=== PATIENT | male | born 1970 | race African-American/Black ===

== ENCOUNTER 2023-03-20 19:31 | Observation (INO) | payer OTHER, SELFPAY ==
--- NOTE | ~2023-03-20 | US_ITS ---
EXAMINATION: US venous doppler LE RT DATE: 03/20/2023 22:27 INDICATION: Right lower limb swelling TECHNIQUE: Victoria scale images without and with compression and Doppler images of the right lower extre mity veins were obtained. COMPARISON: None FINDINGS: The right common femoral vein, profunda femoral vein, femoral vein, popliteal vein, peronea l trunk, posterior tibial veins, and greater saphenous vein are occluded. IMPRESSION: 1. Deep venous thrombosis of all visualized right lower extremity veins. These findings were discussed with Dr. Brooks Lang in the Emergency Department at 1057 ho urs on 03/20/2023. Reviewed, dictated and finalized at location F. IMPRESSION: 1. Deep venous thrombosis of all visualized right lower extremity veins. These findings were discussed with Dr. Brooks Lang in the Emergency Department at 1057 hours on 03/20/2023.
[2023-03-20 19:55] VITALS: BP 136/82; PULSE 88; RESP 20; TEMP 36.8; O2SAT 99
[2023-03-20 22:57] VITALS: BP 143/92; PULSE 89; RESP 20; O2SAT 100
[2023-03-20 23:03] VITALS: BP 144/89; PULSE 78; RESP 22; O2SAT 98
[2023-03-20 23:16] VITALS: BP 137/85; PULSE 76; RESP 23; O2SAT 99
[2023-03-20 23:16] LABS: Basophils Percent Auto 0.5 % (0.2-1.2); Eosinophils Absolute Auto 0.2 K/mm3 (0-0.3); Eosinophils Percent Auto 2.6 % (0-4.4); Hematocrit 39.8 % (42.0-52.0); Immature Granulocyte Absolute 0.03 K/mm3 (0.00-0.031); Immature Granulocyte Percent A 0.5 % (0-0.5); Lymphocytes Absolute Auto 1.21 K/mm3 (0.9-3.2); Lymphocytes Percent Auto 20.7 % (18.3-44.2); Mean Corpuscular HGB Conc 32.7 g/dl (32-36); Mean Corpuscular Hemoglobin 31.3 pg (26-34); Mean Corpuscular Volume 95.9 fl (80-100); Mean Platelet Volume 10.1 fl (7.4-10.4); Monocytes Absolute Auto 0.5 K/mm3 (0.1-0.6); Monocytes Percent Auto 8.2 % (2.6-8.5); Neutrophils Percent Auto 67.5 % (45.5-73.1); Platelet Count Result 171 k/mm3 (150-375); Red Blood Count 4.15 M/mm3 (4.6-6.20); Red Cell Distribution Width 12.9 % (11.5-14.5); White Blood Count 5.9 K/mm3 (4.5-10.0)
[2023-03-20 23:28] LABS: Alanine Aminotransferase 18 U/L (6-50); Albumin Level 4.2 g/dL (3.5-5.1); Alkaline Phosphatase 96 U/L (38-126); Anion Gap 6 mmol/L (8-16); Aspartate Amino Transferase 27 U/L (17-59); Blood Urea Nitrogen 19 mg/dL (9-20); Calcium 9.1 mg/dL (8.4-10.2); Carbon Dioxide 27 mmol/L (22-30); Chloride 104 mmol/L (98-107); Estimated CRCL calculation 99 ml/min; Estimated Glomerular Filt Rate > 60; Glucose 95 mg/dL (65-110); Potassium 3.9 mmol/L (3.4-5.0); Sodium 137 mmol/L (137-145)
[2023-03-20 23:31] VITALS: BP 144/96; PULSE 69; RESP 20; O2SAT 100
[2023-03-20 23:39] LABS: INR 1.1; Prothrombin Time 14.9 Seconds (11.1-14.7)
[2023-03-20 23:40] LABS: Partial Thromboplastin Time 37.4 SECONDS (22.3-36.8)
[2023-03-20 23:46] VITALS: BP 140/92; PULSE 80; RESP 19; O2SAT 97
[2023-03-21] VITALS (115 sets, daily range): BP systolic 100–183; BP diastolic 60–103; PULSE 67–121; RESP 12–26; TEMP 36.8; O2SAT 92–100
[2023-03-21] MEDS: HEPARIN SODIUM 5,000 UNITS/ML VIAL 7500 UNITS IV PUSH ×2 (01:53→15:41)
[2023-03-21] MEDS: HEPARIN SOD/D5W 100 UNITS/ML 25,000 UNITS/250 ML BAG 15 UNITS IV CONT (01:54)
--- NOTE | 2023-03-21 02:01 | PC.NURSE ---
Angelina from [facility] called for triage information on pt. This RN provided information. [facility] will call every morning and night to update on bed status.
[2023-03-21] MEDS: MORPHINE SULFATE (*CRX) 4 MG/ML INJ IV PUSH (02:14)
--- NOTE | 2023-03-21 02:14 | ED.GENADULT ---
HPI - General Adult General Chief complaint: Extremity Problem,Nontraumatic Stated complaint: pain and swelling in right leg, hx of dvt Time Seen by Provider: 03/20/23 22:37 History of Present Illness HPI narrative: Patient 32-year-old gentleman who presents the emergency department with chief complaint of possible DVT in the right lower extremity. The patient reports that he has had a DVT pulmonary embolism and has had a recent stroke the patient states he was discharged from [facility] to rehab on around the 15 of this month the patient states he is on a oral anticoagulant and had previously been on Lovenox the patient states that he is having no chest pain no shortness of breath but states that his right leg feels swollen and red and he is concerned for possible DVT. Related Data Allergies Allergy/AdvReac Type Severity Reaction Status Date / Time No Known Allergies Allergy Verified 03/21/23 01:52 Review of Systems Review of Systems: A 10 system review of systems was completed on the patient and is negative except for what is stated in the HPI. Nursing and ancillary documentation was reviewed. Exam Narrative: GENERAL: Well-appearing, well-nourished, and in no acute distress. HEAD: Normocephalic, atraumatic. EYES: PERRLA and EOMI. ENT: Nares clear, no rhinorrhea or epistaxis. Mucous membranes moist. NECK: Supple. CHEST: Clear to auscultation. No respiratory distress. HEART: Regular rate and rhythm. No murmur heard. Normal peripheral pulses. ABDOMEN: Soft, nontender, nondistended, normal active bowel sounds. EXTREMITIES: Normal range of motion. No edema in extremities other than the right lower extremity. Right leg is red swollen and tender worse in the calf. SKIN: Warm, dry, no rash. NEURO: No new focal deficits weakness in the right upper extremity and right lower extremity. Alert and oriented x3. PSYCH: Normal mood and affect. Course Vital Signs Vital signs: Vital Signs Temperature 36.8 C 03/20/23 19:55 Pulse Rate 88 03/20/23 19:55 Respiratory Rate 20 03/20/23 19:55 Blood Pressure 136/82 03/20/23 19:55 Pulse Oximetry 99 03/20/23 19:55 Oxygen Delivery Room Air 03/20/23 19:55 Temperature 36.8 C 03/20/23 19:55 Pulse Rate 75 03/21/23 01:46 Respiratory Rate 15 03/21/23 01:46 Blood Pressure 155/94 H 03/21/23 01:46 Pulse Oximetry 100 03/21/23 01:46 Oxygen Delivery Room Air 03/20/23 19:55 Medical Decision Making MDM Narrative Medical decision making narrative: Differential diagnosis includes worsening DVT failed outpatient therapy, venous duplex showed worsening of the DVT after the case was discussed with [facility] patient had extensive DVT involving all EXTR vessels of the right lower extremity. Laboratory studies were obtained which showed no acute abnormalities patient was started on a heparin drip and the case was discussed with vascular at [facility] and they felt that the patient should be brought back over to [facility] for both hematology and vascular surgery evaluation as the patient may ultimately require intervention to facilitate treatment of the DVT. Currently we are waiting on a bed at [facility] they are hoping that there will be a bed available during the day as they do have some scheduled discharges for the appropriate unit for the patient the patient is currently showing no signs of acute hemodynamic compromise no chest pain no shortness of breath are a shoulder lady may be coming back in for another x-ray because she thinks she moved around and may have may have noticed that it moved we shall see. Patient. Vital Signs Vital Signs: Vital Signs Temperature 36.8 C 03/20/23 19:55 Pulse Rate 88 03/20/23 19:55 Respiratory Rate 20 03/20/23 19:55 Blood Pressure 136/82 03/20/23 19:55 Pulse Oximetry 99 03/20/23 19:55 Oxygen Delivery Room Air 03/20/23 19:55 Temperature 36.8 C 03/20/23 19:55 Pulse Rate 75 03/21/23 01:46 Respiratory
[2023-03-21 08:06] LABS: Basophils Percent Auto 0.2 % (0.2-1.2); Eosinophils Percent Auto 0.4 % (0-4.4); Hematocrit 40.3 % (42.0-52.0); Hemoglobin 13.1 g/dL (14.0-18.0); Immature Granulocyte Absolute 0.05 K/mm3 (0.00-0.031); Immature Granulocyte Percent A 0.5 % (0-0.5); Immature Platelet Fraction Pct 4.1 % (0.9-11.2); Lymphocytes Percent Auto 8.4 % (18.3-44.2); Mean Corpuscular HGB Conc 32.5 g/dl (32-36); Mean Corpuscular Hemoglobin 31.2 pg (26-34); Monocytes Absolute Auto 0.5 K/mm3 (0.1-0.6); Monocytes Percent Auto 4.9 % (2.6-8.5); Neutrophils Absolute Auto 8.1 K/mm3 (1.3-6.7); Neutrophils Percent Auto 85.6 % (45.5-73.1); Platelet Count Result 86 k/mm3 (150-375); Red Cell Distribution Width 12.8 % (11.5-14.5); White Blood Count 9.5 K/mm3 (4.5-10.0)
[2023-03-21 08:13] LABS: INR 1.1
[2023-03-21 08:15] LABS: Partial Thromboplastin Time 109.8 SECONDS (22.3-36.8)
--- NOTE | 2023-03-21 11:38 | PC.NURSE ---
1114 Spoke with SANDI Lindsey from [facility] to confirm pts medication list and give update on transfer status.
--- NOTE | 2023-03-21 12:37 | PC.NURSE ---
Spoke with [facility] transfer center and gave update on pts condition. They stated we are waiting on a vascular bed.
[2023-03-21 15:33] LABS: INR 1.1; Prothrombin Time 14.6 Seconds (11.1-14.7)
[2023-03-21 15:34] LABS: Partial Thromboplastin Time 53.8 SECONDS (22.3-36.8)
--- NOTE | 2023-03-21 19:29 | PC.NURSE ---
Assumed care of pt. Report from Griselda Azevedo. Pt resting quietly per cart. Denies any complaints at this time. Right arm propped with bedding to assist with keeping straight for infusion.
[2023-03-21] MEDS: HEPARIN SOD/D5W 100 UNITS/ML 25,000 UNITS/250 ML BAG 17 UNITS IV CONT (21:45)
--- NOTE | 2023-03-21 22:26 | PC.NURSE ---
Received a call from Randall at [facility] transfer center for updates. No bed available at this time.
[2023-03-21 22:30] LABS: INR 1.2; Prothrombin Time 15.6 Seconds (11.1-14.7)
[2023-03-21 23:31] LABS: Partial Thromboplastin Time > 200.0 SECONDS (22.3-36.8)
--- NOTE | 2023-03-21 23:40 | PC.NURSE ---
Received notice that pt's ptt is >200. Heparin gtt stopped.
[2023-03-22] VITALS (55 sets, daily range): BP systolic 117–159; BP diastolic 69–92; PULSE 75–100; RESP 13–25; TEMP 36.2–36.6; O2SAT 94–100; BMI 40.6
--- NOTE | 2023-03-22 01:00 | PC.NURSE ---
Heparin gtt restarted at 14ml/hr or 1400 units
[2023-03-22] MEDS: HEPARIN SOD/D5W 100 UNITS/ML 25,000 UNITS/250 ML BAG 14 UNITS IV CONT (01:01)
[2023-03-22] MEDS: GABAPENTIN 300 MG CAPSULE PO ×3 (04:05→16:38)
[2023-03-22] MEDS: ATORVASTATIN 40 MG TABLET 80 MG PO ×2 (04:06→20:20)
--- NOTE | 2023-03-22 07:23 | PC.NURSE ---
Report to SANDI Brandon
[2023-03-22 07:48] LABS: INR 1.1; Prothrombin Time 15.1 Seconds (11.1-14.7)
[2023-03-22 07:51] LABS: Partial Thromboplastin Time 143.6 SECONDS (22.3-36.8)
[2023-03-22] MEDS: FOLIC ACID 1 MG TABLET PO (09:13)
[2023-03-22] MEDS: THIAMINE HCL 100 MG TABLET PO (09:13)
[2023-03-22] MEDS: FLUoxetine HCL 20 MG CAPSULE 40 MG PO (09:13)
[2023-03-22 13:16] LABS: Hematocrit 37.9 % (42.0-52.0); Hemoglobin 12.2 g/dL (14.0-18.0)
--- NOTE | 2023-03-22 13:36 | ADMGEN ---
This patient, Jignesh Meyers, was admitted to 3 [facility] Surg Room 300-01 @ 5106. Patient/family oriented to hospital policies and general routines including ID bracelet, bed and alarms, visiting hours, pain management, procedures, bathroom and other care routines, personal items, smoking policy, room service/diet, and visiting hours. Information on how to activate the Rapid Response Team has been discussed. Patient/Family are encouraged to report perceived risks to care and to ask questions if they do not understand what they are told or what they should do.
--- NOTE | 2023-03-22 14:44 | PM.IMHP ---
H&P: HPI History of Present Illness Date/Time: 03/22/23 14:44 Chief Complaint: Lower Extremity Swelling Narrative: 52 y/o M presents here with RLE swelling with PMH of CVA in January of this year with residual right-sided deficits. Patient presents here swelling to his right lower extremity for the past 3 weeks. Patient was receiving rehab post CVA for his residual right-sided weakness, tingling. While there, he notice swelling swelling and redness initially just in calf. Patient alerted staff at rehab to finding, attributed to receiving physical therapy. However continued to worsen and right lower extremity in its entirety became swollen per patient. He denied extremity feeling hot to the touch. Currently on apixaban. He denies chest pain or shortness of breath. Review of Systems Review of Systems: All systems reviewed & are unremarkable except as noted in HPI and below PMFSH Past Medical History Medical History (Updated 03/22/23 @ 23:36 by Nano Baca APRN) CVA (cerebral vascular accident) Right-sided sensory deficit present Social History Social History (Updated 03/22/23 @ 23:37 by Nano Baca APRN) Social History: Living in custodial in [place]. 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 Surrogate decisionmaker: Roseanne Meyers, sister Smoking packs per day: 0.1 Smoking cigarettes per day: 2.0 Smoking status: Former smoker Tobacco type: cigarettes Second hand tobacco smoke exposure: Yes Smoking end date: 01/31/23 Alcohol intake: former Substance use: former Substance use type: former substance user, marijuana and crack/cocaine Other substance usage details: 'I have not used in over a moth.' Last use: 'I have not had a drink in over a month.' Lack of Transportation: No Lack of Food: Never True Current Housing: I Have Housing Concerned About Future Housing: No Difficulty Paying Gas/Electric Bills: No Difficulty Paying for Meds: No Currently Unemployed: No Education: Decline to Answer Difficulty w/ Childcare or Family Care: No Spiritual care concerns: No Meds Home Medications and Allergies Home Medications Medication Instructions Recorded Confirmed Type acetaminophen 325 mg capsule 650 mg PO Q4-8H PRN Pain 03/21/23 03/21/23 History (Tylenol) apixaban 5 mg tablet (Eliquis) 5 mg PO BID 03/21/23 03/22/23 History atorvastatin 80 mg tablet 80 mg PO HS 03/21/23 03/21/23 History fluoxetine 40 mg capsule (Prozac) 40 mg PO DAILY 03/21/23 03/21/23 History folic acid 1 mg tablet 1 mg PO DAILY 03/21/23 03/21/23 History gabapentin 300 mg tablet 300 mg PO TID 03/21/23 03/21/23 History lidocaine 4 % topical patch 1 patch topical DAILY PRN Pain 03/21/23 03/22/23 History (Blue-Emu Lidocaine Patch) ondansetron 4 mg disintegrating 4 mg PO PRN PRN Nausea And Vomiting 03/21/23 03/21/23 History tablet polyethylene glycol 3350 17 gram 17 g PO DAILY Constipation 03/21/23 03/21/23 History oral powder packet (Miralax) sennosides 8.6 mg-docusate sodium 2 tablet PO BID Constipation 03/21/23 03/22/23 History 50 mg tablet (Senna-S) simethicone 80 mg tablet 80 mg PO DAILY PRN Abdominal 03/21/23 03/21/23 History Discomfort thiamine HCl (vitamin B1) 100 mg 100 mg PO DAILY 03/21/23 03/21/23 History tablet Allergies Allergy/AdvReac Type Severity Reaction Status Date / Time No Known Allergies Allergy Verified 03/21/23 01:52 Vital Signs Vital Signs - 24 hr 03/21/23 14:46 03/21/23 15:00 03/21/23 15:01 Temperature Pulse Rate 80 79 83 Respiratory Rate 14 16 19 Blood Pressure 119/74 Pulse Oximetry 03/21/23 15:16 03/21/23 15:46 03/21/23 16:00 Temperature Pulse Rate 74 85 82 Respiratory Rate 16 14 17 Blood Pressure Pulse Oximetry 03/21/23 16:15 03/21/23 16:30 03/21/23 16:57 Temperature Pulse Rate 89 75 83 Respiratory Rate 16 24 H 18 Blood Pressure Pulse Oximetry 100 03/21/23 17
[2023-03-22 17:19] LABS: Partial Thromboplastin Time 63.7 SECONDS (22.3-36.8)
[2023-03-22] MEDS: HEPARIN SODIUM 5,000 UNITS/ML VIAL 3500 UNITS IV PUSH (17:40)
[2023-03-22] MEDS: SENNA/DOCUSATE SODIUM TABLET 2 TAB PO (17:40)
[2023-03-22] MEDS: ACETAMINOPHEN 325 MG TABLET 650 MG PO (17:40)
[2023-03-22] MEDS: HEPARIN SOD/D5W 100 UNITS/ML 25,000 UNITS/250 ML BAG 13 UNITS IV CONT (20:21)
[2023-03-23 00:42] LABS: Partial Thromboplastin Time 86.5 SECONDS (22.3-36.8)
[2023-03-23 04:40] VITALS: BP 126/76; PULSE 74; RESP 16; TEMP 36.6; O2SAT 99
[2023-03-23] MEDS: FOLIC ACID 1 MG TABLET PO (08:47)
[2023-03-23] MEDS: THIAMINE HCL 100 MG TABLET PO (08:47)
[2023-03-23] MEDS: FLUoxetine HCL 20 MG CAPSULE 40 MG PO (08:47)
[2023-03-23] MEDS: GABAPENTIN 300 MG CAPSULE PO ×2 (08:47→12:27)
[2023-03-23] MEDS: ACETAMINOPHEN 325 MG TABLET 650 MG PO ×2 (08:47→12:27)
--- NOTE | 2023-03-23 09:15 | PM.TDS ---
Transfer Discharge Sum: Prov Provider Date of admission: 03/22/23 15:45 Primary care physician: UNKNOWN,DOCTOR Admitting clinician: Theo Peters DO Consults: 03/22/23 Care Coordination Consult Routine Comment: assistance with obtaining disability Reason for Consult:: Other Attending physician on discharge: Glenna Aly Discharging clinician: Wilman De La Cruz Anticipated date of transfer: 03/23/23 Receiving physician/facility: [facility] Perez at [facility], arranged by ER provider on 03/21 DS: Admitting Diagnosis Discharge Date 03/23/2023 Admitting Diagnosis DVT right lower extremity DS: Discharge Diagnosis Discharge Diagnosis (1) Deep vein thrombosis of lower extremity: Qualifiers: Affected thrombotic vein of extremity: unspecified vein of extremity Chronicity: acute Laterality: right Qualified Code(s): I82.401 - Acute embolism and thrombosis of unspecified deep veins of right lower extremity Code(s): I82.409 - Acute embolism and thrombosis of unspecified deep veins of unspecified lower extremity Status: Acute Assessment and Plan: Extensive right lower extremity DVT in all veins Plan Transfer to [facility] via ALS ambulance with heparin drip infusing Transfer Discharge Sum: Med Medications Active and Home Medications: Home Medications acetaminophen 325 mg capsule (Tylenol) 650 mg PO Q4-8H PRN Pain 03/21/23 [History Confirmed 03/21/23] apixaban 5 mg tablet (Eliquis) 5 mg PO BID 03/21/23 [History Confirmed 03/22/23] atorvastatin 80 mg tablet 80 mg PO HS 03/21/23 [History Confirmed 03/21/23] fluoxetine 40 mg capsule (Prozac) 40 mg PO DAILY 03/21/23 [History Confirmed 03/21/23] folic acid 1 mg tablet 1 mg PO DAILY 03/21/23 [History Confirmed 03/21/23] gabapentin 300 mg tablet 300 mg PO TID 03/21/23 [History Confirmed 03/21/23] lidocaine 4 % topical patch (Blue-Emu Lidocaine Patch) 1 patch topical DAILY PRN Pain 03/21/23 [History Confirmed 03/22/23] ondansetron 4 mg disintegrating tablet 4 mg PO PRN PRN Nausea And Vomiting 03/21/23 [History Confirmed 03/21/23] polyethylene glycol 3350 17 gram oral powder packet (Miralax) 17 g PO DAILY Constipation 03/21/23 [History Confirmed 03/21/23] sennosides 8.6 mg-docusate sodium 50 mg tablet (Senna-S) 2 tablet PO BID Constipation 03/21/23 [History Confirmed 03/22/23] simethicone 80 mg tablet 80 mg PO DAILY PRN Abdominal Discomfort 03/21/23 [History Confirmed 03/21/23] thiamine HCl (vitamin B1) 100 mg tablet 100 mg PO DAILY 03/21/23 [History Confirmed 03/21/23] Active Medications Acetaminophen (Acetaminophen 325 Mg Tablet) 650 mg PO Q4H PRN PRN Reason: Mild Pain (1-3) or Fever Last Admin: 03/23/23 08:47 Dose: 650 mg Atorvastatin Calcium (Atorvastatin 40 Mg Tablet) 80 mg PO HS [facility] Last Admin: 03/22/23 20:20 Dose: 80 mg Fluoxetine HCl (Fluoxetine Hcl 20 Mg Capsule) 40 mg PO DAILY [facility] Last Admin: 03/23/23 08:47 Dose: 40 mg Folic Acid (Folic Acid 1 Mg Tablet) 1 mg PO DAILY [facility] Last Admin: 03/23/23 08:47 Dose: 1 mg Gabapentin (Gabapentin 300 Mg Capsule) 300 mg PO TID [facility] Last Admin: 03/23/23 08:47 Dose: 300 mg Heparin Sodium (Porcine) (Heparin Sodium 5,000 Units/Ml Vial) 3,500 units IV PUSH PRN PRN PRN Reason: aPTT 55 - 70 seconds Last Admin: 03/22/23 17:40 Dose: 3,500 units Heparin Sodium (Porcine) (Heparin Sodium 5,000 Units/Ml Vial) 7,500 units IV PUSH PRN PRN PRN Reason: aPTT less than 55 seconds Last Admin: 03/21/23 15:41 Dose: 7,500 units Heparin Sodium/Dextrose (Heparin Sodium/D5w 100 Units/Ml) 25,000 units in 250 mls @ 13 mls/hr IV CONT .[id number] [facility]; Protocol Last Titration: 03/23/23 06:20 Dose: 1,300 units/hr, 13 mls/hr Ondansetron HCl (Ondansetron Hcl Odt 4 Mg Tablet) 4 mg PO PRN PRN PRN Reason: Nausea And Vomiting Polyethylene Glycol (Polyethylene Glycol 3350 17 Gm Powd.Pack) 17 gm PO DAILY [facility] Last Admin: 03/23/23 08:48 Dose: Not Given Senna/Docusate Sodium (Senna/
--- NOTE | 2023-03-23 09:57 | PC.NURSE ---
This RN called [facility] ([phone]) and gave report to receiving RN Anum Fall.
[2023-03-23 10:37] VITALS: O2SAT 98
[2023-03-23 12:09] LABS: Partial Thromboplastin Time 42.2 SECONDS (22.3-36.8)
[2023-03-23] MEDS: HEPARIN SODIUM 5,000 UNITS/ML VIAL 7500 UNITS IV PUSH (12:26)
--- NOTE | 2023-03-23 13:35 | PC.NURSE ---
Pt discharged to [facility] via EMS with IV intact and medication actively infusing into IV. IV pump taken for transport and [facility] stated they will return the IV pump to [facility] ER.
--- NOTE | 2023-03-23 13:47 | PC.NURSE ---
This RN called receiving RN at [facility] to give updates on pt and to notify RN that pt is in transport.
== END 2023-03-23 13:35 | disposition short-term general hospital (02) ==
LOC: ANHED 03-22 12:14 → ANH3MEDSUR 03-22 13:39
PROVIDERS: Emergency Medicine; Student in an Organized Health Care Education/Training Program; Admitting Provider Student in an Organized Health Care Education/Training Program; Emergency Provider Emergency Medicine; Visit Provider Student in an Organized Health Care Education/Training Program
DX: I82.4Y1 Acute embolism and thrombosis of unspecified deep veins of right proximal lower extremity (principal); R29.818 Other symptoms and signs involving the nervous system; K59.00 Constipation, unspecified; F32.A Depression, unspecified; R11.10 Vomiting, unspecified; R10.9 Unspecified abdominal pain; Z86.718 Personal history of other venous thrombosis and embolism; Z86.73 Personal history of transient ischemic attack (TIA), and cerebral infarction without residual deficits; Z87.891 Personal history of nicotine dependence; Z79.01 Long term (current) use of anticoagulants; Z79.1 Long term (current) use of non-steroidal anti-inflammatories (NSAID)
CPT/HCPCS: 36415; 80053; 85014; 85018; 85025; 85055; 85610; 85730; 93971; 96365; 96366; 99285; A9270; G0378; G0379; J1644; J2270